=== PATIENT | male | born 1985 | race Caucasian/White ===

== ENCOUNTER 2018-05-08 16:56 | Emergency (ER) | payer SELFPAY ==
--- NOTE | 2018-05-08 19:29 | UC ---
Shoulder Pain HPI - HPI Summary HPI Summary: 32-year-old male presents with 2 week history of left shoulder and chest wall pain. Describes pain as a constant ache. Worsens with movement and deep breath. Pain sometimes radiates up into the left side of his neck. Patient has taken ibuprofen with little relief in pain. Denies fever, chills, palpitations, weakness, dizziness, shortness of breath, weakness, numbness, tingling in the extremities, abdominal pain, nausea, vomiting, or diaphoresis. - History of Current Complaint Chief Complaint: UCUpperExtremity Stated Complaint: LEFT SHOULDER PAIN Time Seen by Provider: 05/08/18 18:45 Hx Obtained From: Patient Pain Intensity: 5 - Allergies/Home Medications Allergies/Adverse Reactions: Allergies Allergy/AdvReac Type Severity Reaction Status Date / Time neomycin Allergy Rash Verified 05/08/18 17:57 PMH/Surg Hx/FS Hx/Imm Hx Previously Healthy: Yes - Denies significant PMH - Surgical History Surgical History: None - Family History Known Family History: Negative: Cardiac Disease, Hypertension, Respiratory Disease, Blood Disorder - Social History Occupation: Employed Full-time Lives: With Family Alcohol Use: None Substance Use Type: None Smoking Status (MU): Heavy Every Day Tobacco Smoker Type: Cigarettes Amount Used/How Often: 3/4 PPD Length of Time of Smoking/Using Tobacco: 18 years Review of Systems All Other Systems Reviewed And Are Negative: Yes Constitutional: Negative: Fever, Chills Skin: Negative: Rash, Bruising ENT: Negative: Sore Throat, Ear Ache, Nasal Discharge, Sinus Congestion, Sinus Pain/Tenderness Respiratory: Negative: Shortness Of Breath, Cough Cardiovascular: Positive: Chest Pain. Negative: Palpitations Gastrointestinal: Negative: Abdominal Pain, Vomiting, Diarrhea, Nausea Genitourinary: Positive: Negative Motor: Negative: Weakness Neurovascular: Negative: Decreased Pulses Musculoskeletal: Positive: Arthralgia - See HPI. Negative: Decreased ROM Neurological: Positive: Negative Is Patient Immunocompromised?: No Physical Exam - Summary Physical Exam Summary: GENERAL APPEARANCE: Well developed, well nourished, alert and cooperative, and appears to be in no acute distress. NECK: Neck supple, non-tender. CARDIAC: Normal S1 and S2. No S3, S4 or murmurs. Rhythm is regular. There is no peripheral edema, cyanosis or pallor. Extremities are warm and well perfused. Capillary refill is less than 2 seconds. Peripheral pulses intact. LUNGS: Clear to auscultation without rales, rhonchi, wheezing or diminished breath sounds. ABDOMEN: Positive bowel sounds. Soft, nondistended, nontender. No guarding or rebound. No masses or hepatosplenomegally. MUSKULOSKELETAL: Mild left chest wall tenderness with palpation, no point tenderness over the shoulder, full range of motion to left shoulder, circulation and sensation intact distally. Normal muscular development. Normal gait. BACK: Examination of the spine reveals normal posture, no spinal deformity or tenderness, decreased range of motion or muscular spasm. NEUROLOGICAL: Strength and sensation symmetric and intact throughout. SKIN: Skin normal color, texture and turgor with no lesions or eruptions. Triage Information Reviewed: Yes Vital Signs: Initial Vital Signs Temp 99.2 F 05/08/18 17:58 Pulse 93 05/08/18 17:58 Resp 16 05/08/18 17:58 BP 142/71 05/08/18 17:58 Pulse Ox 100 05/08/18 17:58 Vital Signs Reviewed: Yes Diagnostics - Radiology No standard instances Radiology Interpretation Completed By: ED Physician - No acute cardiopulmonary pathology. - EKG Cardiac Rhythm: Sinus: Normal Ectopy: None ST Segment: Normal Summary of EKG Findings: NSR without ectopy, ST changes, or T-wave changes Shoulder Course/Dx - Course Course Of Treatment: 32-year-old male presents with 2 week history of left shoulder and chest wall pain. Describes pain as a constant ache. Worsens with movement and deep breath. Pain sometimes radiates up into the left side of his neck. Patient has taken ibuprofen with little relief in pain. Denies fever, chills, palpitations, weakness, dizziness, shortness of breath, weakness, numbness, tingling in the extremities, abdominal pain, nausea, vomiting, or diaphoresis. Patient is a three-quarter to one pack a day smoker. Afebrile. Mildly hypertensive otherwise vital signs within normal limits. Exam reveals an adult male in no acute distress with some mild left chest wall tenderness with palpation, no point tenderness over the shoulder, full range of motion to left shoulder, circulation and sensation intact distally. Remainder of exam was unremarkable. A 12-lead EKG was obtained showing normal sinus rhythm without ectopy, ST changes, or T-wave changes. Two-view chest x-ray was normal. Will treat for musculoskeletal chest wall pain using naproxen 500 mg twice a day and recommending he try using warm moist heat to the affected area. He is to follow-up here or with her primary care provider if symptoms do not improve. Anticipatory guidance warning symptoms were reviewed with the patient. Verbalizes understanding and agrees with plan of care. - Differential Dx/Diagnosis Differential Diagnosis/HQI/PQRI: Arthritis, Bursitis, Sprain, Strain, Thoracic Outlet Syndrome, Other - SC, PE, pleurisy Provider Diagnosis: Acute pain of left shoulder, Acute chest wall pain, Elevated blood pressure reading Discharge - Sign-Out/Discharge Documenting (check all that apply): Patient Departure All imaging exams completed and their final reports reviewed: No - Discharge Plan Condition: Stable Disposition: HOME Prescriptions: Naproxen [Naproxen 500 mg tab] 500 mg PO Q12H #30 tablet Patient Education Materials: Chest Wall Pain (ED) Referrals: No Primary Care Phys,NOPCP [Primary Care Provider] - [facility] [place]] Additional Instructions: Your EKG and chest x-ray performed in the clinic today were both normal. I suspect that your pain is likely musculoskeletal. Take naproxen 500 mg 1 tab every 12 hours with food for next 5-7 days then may take as needed. Use a heating pad to the the affected area for 15-20 minutes 3-4 times a day to help relax the muscles. Return here or follow up with a primary care provider in 7 days if no improvement. Your blood pressure was elevated in the clinic today. It is recommended that you follow up with a primary care provider within 4 weeks to have this rechecked. I have given you the number for the [facility] physician referral center if you need assistance establishing with a primary care provider. Seek immediate medical attention in the emergency room if you have worsening pain despite taking pain medication, feel as if your heart is racing or skipping beats, you are short of breath, become weak or dizzy, or have any worsening of symptoms. - Billing Disposition and Condition Condition: STABLE Disposition: Home
--- NOTE | 2018-05-09 08:00 | UC ---
- Progress Note Progress Note: chest xray report: IMPRESSION: No active cardiopulmonary disease is noted. Course/Dx - Diagnoses Provider Diagnoses: Acute pain of left shoulder, Acute chest wall pain, Elevated blood pressure reading Discharge - Sign-Out/Discharge Documenting (check all that apply): Patient Departure All imaging exams completed and their final reports reviewed: Yes - Discharge Plan Condition: Stable Disposition: HOME Prescriptions: Naproxen [Naproxen 500 mg tab] 500 mg PO Q12H #30 tablet Patient Education Materials: Chest Wall Pain (ED) Referrals: [facility] [place] [facility] [place]] No Primary Care Phys,NOPCP [Primary Care Provider] - Additional Instructions: Your EKG and chest x-ray performed in the clinic today were both normal. I suspect that your pain is likely musculoskeletal. Take naproxen 500 mg 1 tab every 12 hours with food for next 5-7 days then may take as needed. Use a heating pad to the the affected area for 15-20 minutes 3-4 times a day to help relax the muscles. Return here or follow up with a primary care provider in 7 days if no improvement. Your blood pressure was elevated in the clinic today. It is recommended that you follow up with a primary care provider within 4 weeks to have this rechecked. I have given you the number for the [facility] physician referral center if you need assistance establishing with a primary care provider. Seek immediate medical attention in the emergency room if you have worsening pain despite taking pain medication, feel as if your heart is racing or skipping beats, you are short of breath, become weak or dizzy, or have any worsening of symptoms. - Billing Disposition and Condition Condition: STABLE Disposition: Home
== END 2018-05-08 20:06 | disposition home or self-care (01) ==
LOC: UCCORT 16:56
DX: M25.512 Pain in left shoulder (principal); R07.89 Other chest pain; R03.0 Elevated blood-pressure reading, without diagnosis of hypertension; M54.2 Cervicalgia; F17.210 Nicotine dependence, cigarettes, uncomplicated; Z88.1 Allergy status to other antibiotic agents
CPT/HCPCS: 71046; 93005; 99202; G0463

== ENCOUNTER 2018-10-16 17:57 | Emergency (ER) | payer BC ==
[2018-10-16 18:40] VITALS: BP 156/96
--- NOTE | 2018-10-16 19:16 | UC ---
General HPI - HPI Summary HPI Summary: stung on back of L hand by a yellow jacket yesterday. later in day, hand started to swell. hand continues to swell and now has some redness. no f/c's, sob, n/v/d. some itching. pt squeezed the site at time of sting. taking benadryl with no relief. - History of Current Complaint Chief Complaint: UCSkin Stated Complaint: LEFT HAND CONCERN Time Seen by Provider: 10/16/18 19:07 Hx Obtained From: Patient Onset/Duration: Gradual Onset Timing: Constant Pain Intensity: 5 Associated Signs & Symptoms: Negative: Fever - Allergy/Home Medications Allergies/Adverse Reactions: Allergies Allergy/AdvReac Type Severity Reaction Status Date / Time neomycin Allergy Rash Verified 10/16/18 18:35 Home Medications: Home Medications diPHENhydraMINE PO* [Benadryl PO 25 MG TAB*] 25 mg PO Q6H PRN 10/16/18 [History Confirmed 10/16/18] PMH/Surg Hx/FS Hx/Imm Hx Previously Healthy: Yes - Surgical History Surgical History: None - Family History Known Family History: Negative: Cardiac Disease, Hypertension, Respiratory Disease, Blood Disorder - Social History Occupation: Employed Full-time Alcohol Use: Occasionally Substance Use Type: Marijuana Substance Use Comment - Amount & Last Used: occasional Smoking Status (MU): Former Smoker Type: Cigarettes Amount Used/How Often: 3/4 PPD Length of Time of Smoking/Using Tobacco: 18 years When Did the Patient Quit Smoking/Using Tobacco: 08/2018 Review of Systems All Other Systems Reviewed And Are Negative: No Constitutional: Negative: Fever, Chills Skin: Positive: Rash - L dorsal hand/wrist Respiratory: Negative: Shortness Of Breath, Cough Gastrointestinal: Negative: Vomiting, Diarrhea, Nausea Musculoskeletal: Positive: Edema - L dorsal hand Neurological: Negative: Weakness, Paresthesia Physical Exam Triage Information Reviewed: Yes Appearance: Well-Appearing Vital Signs: Initial Vital Signs Temp 98.4 F 10/16/18 18:36 Pulse 86 10/16/18 18:36 Resp 16 10/16/18 18:36 BP 156/96 10/16/18 18:36 Pulse Ox 100 10/16/18 18:36 Vital Signs Reviewed: Yes Eyes: Positive: Conjunctiva Clear Neck: Positive: Supple Respiratory: Positive: No respiratory distress Cardiovascular: Positive: RRR Musculoskeletal: Positive: Other: - L hand: mild to moderate swelling into dorsal wrist. mild erythema dorsal hand into dorsal wrist. no streaking. hand and wrist have gross s/v/m function. No adenoapthy. Neurological: Positive: Alert Psychological: Positive: Age Appropriate Behavior Skin Exam: Normal Course/Dx - Differential Dx - Multi-Symptom Differential Diagnoses: Other - local reaction to sting; however, evolving erythema and worsening swelling raises concern for infection. will tx with steroid x 3 days and antibiotic with close f/u. - Diagnoses Provider Diagnosis: Cellulitis of left hand, Sting, insect Discharge - Sign-Out/Discharge Documenting (check all that apply): Patient Departure All imaging exams completed and their final reports reviewed: No Studies - Discharge Plan Condition: Stable Disposition: HOME Prescriptions: Cephalexin CAP* [Keflex CAP*] 500 mg PO TID 7 Days #21 cap predniSONE [Prednisone 20 MG TAB] 40 mg PO DAILY 3 Days #6 tablet Patient Education Materials: Cellulitis (ED), Insect Bite or Sting (ED) Forms: *Work Release Referrals: ZABRINA Saldivar [[email or web address]BUSINESS, APPLICATION, OTHER] - 3 Days - Billing Disposition and Condition Condition: STABLE Disposition: Home
== END 2018-10-16 19:27 | disposition home or self-care (01) ==
LOC: UCCORT 17:57
DX: L03.114 Cellulitis of left upper limb (principal); T63.461A Toxic effect of venom of wasps, accidental (unintentional), initial encounter; Y92.9 Unspecified place or not applicable; Z87.891 Personal history of nicotine dependence
CPT/HCPCS: 99212; G0463